=== PATIENT | female | born 1980 | race Caucasian/White ===

== ENCOUNTER 2020-05-15 19:55 | Inpatient (IN) | payer BC, MEDICAID, OTHER, SELFPAY ==
[~2020-05-15] VITALS: Ht 167.6 cm; Wt 91.4 kg
[~2020-05-15 19:55] MED LIST: ADVA1AER2 INH; ALBUPOW9 XX; ANUS2.5C2 EXT; DOCU5LIQ PO; IBUP600T26 PO; MAPA500T17 PO; MILK10SU PO; PRENTAB74 PO; TUMS500C PO
[2020-05-15] MEDS ORDERED: buspirone PO (20:34)
[2020-05-15] MEDS ORDERED: CITA20TA7 PO (20:34)
[2020-05-15 21:04] LABS: HEMATOCRIT 37.9 % (36.0-47.0); MEAN CORPUSCULAR HEMOGLOBIN 26.9 pg (27.0-33.0); MEAN CORPUSCULAR HGB CONC 31.7 g/dl (32.0-36.5); PLATELET COUNT, AUTOMATED 302 10^3/uL (150-450); RED BLOOD COUNT 4.46 10^6/uL (4.00-5.40); WHITE BLOOD COUNT 9.1 10^3/uL (4.0-10.0)
[2020-05-15 21:33] LABS: HCG, SERUM QUALITATIVE NEGATIVE (NEGATIVE)
[2020-05-15] MEDS ORDERED: LORazepam 0.5 MG TAB PO ONE (21:35)
[2020-05-15 21:41] LABS: ACETAMINOPHEN LEVEL 2.1 UG/ML (10.0-30.0); ALBUMIN 3.9 GM/DL (3.2-5.2); ALT/SGPT 21 U/L (12-78); BILIRUBIN,DIRECT < 0.1 MG/DL (0.0-0.2); BILIRUBIN,TOTAL 0.2 MG/DL (0.2-1.0); BLOOD UREA NITROGEN 14 MG/DL (7-18); CARBON DIOXIDE LEVEL 24 MEQ/L (21-32); CHLORIDE LEVEL 109 MEQ/L (98-107); CREATININE FOR GFR 0.64 MG/DL (0.55-1.30); ETHYL ALCOHOL (ETHANOL) < 0.003 % (0.000-0.010); GLOMERULAR FILTRATION RATE > 60.0 (>60); GLUCOSE, FASTING 112 MG/DL (70-100); POTASSIUM SERUM 3.9 MEQ/L (3.5-5.1); SALICYLATE LEVEL < 1.7 MG/DL (5.0-30.0); SODIUM LEVEL 141 MEQ/L (136-145); TOTAL PROTEIN 7.3 GM/DL (6.4-8.2)
[2020-05-15] MEDS ORDERED: ACETAMINOPHEN TAB 650MG DOSE (2X325MG) PO ONE (21:45)
[2020-05-15 21:54] LABS: AMPHETAMINES LEVEL URINE NEGATIVE (NEGATIVE); BARBITURATES URINE NEGATIVE (NEGATIVE); BENZODIAZEPINES URINE NEGATIVE (NEGATIVE); CANNABINOIDS URINE POSITIVE (NEGATIVE); COCAINE METABOLITE URINE NEGATIVE (NEGATIVE); METHADONE URINE NEGATIVE (NEGATIVE); OPIATES URINE NEGATIVE (NEGATIVE); PHENCYCLIDINE URINE NEGATIVE (NEGATIVE)
[2020-05-15] MEDS ORDERED: MOM 30ML SUSPENSION UDC PO PRN (23:55)
[2020-05-15] MEDS ORDERED: MAALOX 30 ML SUSP *UDC PO PRN (23:55)
[2020-05-15] MEDS ORDERED: LORazepam 2 MG TAB PO PRN (23:55)
[2020-05-16] MEDS ORDERED: VITMTA PO (00:01)
[2020-05-16] MEDS ORDERED: CELE20TA PO (00:01)
[2020-05-16] MEDS ORDERED: CYAN500T3 PO (00:01)
[2020-05-16] MEDS ORDERED: D31000TA2 PO (00:01)
[2020-05-16] MEDS ORDERED: BUSP15TA90 PO (00:01)
[2020-05-16 00:46] LABS: RSV AMPLIFICATION NEGATIVE (NEGATIVE)
[2020-05-16 03:20] VITALS: BP 166/104
[2020-05-16 03:27] VITALS: BP 166/104
[2020-05-16] MEDS: THIAMINE 100 MG TAB PO SCH ×3 (03:39→20:11)
[2020-05-16 05:44] VITALS: BP 144/83
[2020-05-16] MEDS: NICOTINE 21MG/24HR 1 EA TRANSDERMAL TD SCH (09:00)
--- NOTE | 2020-05-16 09:10 | MHHPEPDOC ---
General Date Of Admission: May 16, 2020 Legal Status: 9.39 Chief Complaint "Tearfulness" History of Present Illness HISTORY OF THE PRESENT ILLNESS: Patient is a 39 -year-old , female * PT attempts to control her crying during MHE but is unsuccessful. She was brought to ED by ambulance from the Urgent Care in [place] after presenting there with panic attack. PT states that a year ago she was accused of sexually harrassing a co worker and that it was unfounded but the stress caused her to quit. She did not elaborate as to what the job was. She spent the last year staying at home due to her anxiety and depression only going out if she absolutely had to. 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 Today after arriving at 8am she was in tears by 10am as she again felt overwhelmed. She could not calm and was sent home where she took a PRN medication but did not get relief. A friend of her later in the day offered her a CBD edibale but it caused PT to feel more anxious. brought her to the urgent care with a panic attack. While at the clinic PT requested admission for mental health and she was transported to [facility] via ambulance. PT was [employer] for 2 1/2 years and she was stationed in [place] in 2001. 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 She met her current around the same timeand he has raised her eldest as his own along with their other two daughters. When PT had her second daughter who is currently 13 she had PPD and utilized food to cope. She eventually got her eating under control and had gastric bypass at which point she replaced food with alcohol. PT admits to drinking every night with varying amounts. After the allegations against her a year ago "I have been going over the endge" PT states her drinking has escalated in amount and she has daily of thoughts of "what's the difference" meaning why not drink as she has given up on life. PT states she does not thinks she could actually kill herself but the frequent thoughts of not wanting to wake up are increasing with frequency and intensity. PT states after 20 years "Why can't I be normal" and she is tired. This 39-year-old female, has 3 daughters, ages 17, 13 and 8. She lives in [place] and is great deal of her panic and depression comes from her job, specifically when she was working at the [employer] and from July 2018 to January 2019. 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 She has not seen a psychiatrist except one virtual visit her alcohol use is significant, although she initially denied drug use is negative. She has never made a suicide attempt. She is treated by Gale Timmons and previously Colleen Jacobs with citalopram 20 mg for the last 13 years. Her legal history is negative. She has a history of panic attacks. She was in the [employer] in 1999 and got her father did not stay with her. She took care of the children. 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 She states she started to have panic attacks at least once a month. Recently she started a new job and immediately on the first day was extremely anxious. She felt overwhelmed. Her heart was racing. She froze up. It is noted that she had a history of depression in the past. She's had a gastric bypass where she lost 125 pounds, although she has gained 25 pounds back. Her bypass was in 2049. She states she drinks alcohol to cope with depression when she couldn't eat any more. She states her drinking began in 2015, 7 days a week. She and her drink 5-6 drinks a night. She denies hallucinations, delusions, obsessions, compulsions and phobias Psychiatric Review of Systems Depression (2 or more weeks): depressed mood, anhedonia, feelings of excess/guilt, feelings of worthlesness, difficulty concentrating Alla (4 or more days of): denies Psychosis: denies PTSD: denies Anxiety: situational anxiety Past Psychiatric History Previous Psychiatric Diagnosis: depression. Previous Psychiatric Admissions: None. Suicide Attempts:. None. Psychiatric Follow-up:. None. Psychiatric medications:. Citalopram 20 mg daily. Past Medical History Medical Problems History of gastric bypass Head Injury: No Seizures: No Hospitalizations: Yes Surgeries: Yes Family Medical/Psychiatric HX Psychiatric Disorders: No Addiction: No Suicide Attemps/Completions: No Addiction History alcohol Social History Childhood: To be explored. Abuse/Trauma:. No history. Current Living Situation: With . Education:, College. Employment:, Works at [employer]. Social Support:. . Legal: Negative. Marital:, Single. Mental Status Examination General Appearance: well groomed Build: average Demeanor: average Eye Contact: average Activity: average Behavior: cooperative Speech: clear Mood: depressed, anxious Affect: anxious Thought Process: logical/linear Thought Content (Delusions): none reported Thought Content (Other): guilty Thought Content (Aggressive): none reported Perception (Hallucinations): none reported Perception (Other): none reported Cognition (Impairment of): none reported Cognition(Intelligence Est.): average Oriented: Awake, Alert, Oriented times three Insight: poor Judgment: Fair Psychosis: Denies Diagnoses Major depressive illness, panic attacks, alcohol dependence A-FIB/CHADSVASC A-FIB History Current/History of A-Fib/PAF?: No Age/Risk Factor Scoring CHADSVASC: CHADSVASC Response (Comments) Value Age Risk Factor Age < 65 years old 0 Gender Risk Factor Female 1 Hx of CHF No 0 Hx of HTN No 0 Hx of Stroke/TIA/or VTE No 0 Hx of Diabetes No 0 Total 1 Treatment Treatment ordered: NONE Initial Treatment Plan 1. Patient was admitted on a [9.39] status. 2. Complete history was obtained. 3. With patients permission, family will be contacted and database will be expanded. 4. Patients medication regimen will be reviewed and changed accordingly. 5. Patient will be provided with protected environment. 6. Patient will be treated with individual, group, and milieu therapies. 7. Patient will receive supportive psych-education. 8. Discharge planning will commence immediately. 9. Outpatient follow-up treatment will be strongly recommended. 10. The initial treatment plan will focus initially on: * Depression. * Risk for suicide. ESTIMATED LENGTH OF STAY: - DAYS. TIME SPENT COUNSELING AND COORDINATING INITIAL CARE: minutes. N/A-No Antipsychotics Vital Signs Vital Signs Date Time Temp Pulse Resp B/P (MAP) Pulse Ox O2 Delivery O2 Flow Rate FiO2 05/16/20 05:44 98.5 70 18 144/83 (103) 98 Room Air Laboratory Data 24H Labs Laboratory Tests 2 05/15/20 20:44: Nucleated Red Blood Cells % (auto) 0.0, Anion Gap 8, Glomerular Filtration Rate > 60.0, Calcium Level 9.0, Total Bilirubin 0.2, Direct Bilirubin < 0.1, Aspartate Amino Transf (AST/SGOT) 21, Alanine Aminotransferase (ALT/SGPT) 21, Alkaline Phosphatase 83, Total Protein 7.3, Albumin 3.9, Albumin/Globulin Ratio 1.1L, Thyroid Stimulating Hormone (TSH) 3.190, Human Chorionic Gonadotropin, Qual NEGATIVE, Salicylates Level < 1.7L, Urine Opiates Screen NEGATIVE, Urine Methadone Screen NEGATIVE, Acetaminophen Level 2.1L, Urine Barbiturates Screen NEGATIVE, Urine Phencyclidine Screen NEGATIVE, Urine Amphetamines Screen NEGATIVE, Urine Benzodiazepines Screen NEGATIVE, Urine Cocaine Metabolite Screen NEGATIVE, Urine Cannabinoids Screen POSITIVEH, Ethyl Alcohol Level < 0.003 05/16/20 00:03: Coronavirus (COVID-19)(PCR) NEGATIVE, Influenza Type A (RT-PCR) NEGATIVE, Influenza Type B (RT-PCR) NEGATIVE, Respiratory Syncytial Virus (PCR) NEGATIVE CBC/BMP Laboratory Tests 05/15/20 20:44 Medications Scheduled Cholecalciferol (Vitamin D3) (Vitamin D3) 1,000 Unit Tablet, 1,000 UNITS PO DAILY, (Reported) Citalopram Hydrobromide (Celexa) 20 Mg Tablet, 20 MG PO QHS, (Reported) Cyanocobalamin (Vitamin B-12) (Vitamin B-12) 500 Mcg Tablet, 500 MCG PO DAILY, (Reported) Multivitamins (Thera M Plus Tablet) 1 Each Tablet, 1 TAB PO DAILY, (Reported) Scheduled PRN Buspirone HCl (Buspirone HCl) 15 Mg Tablet, 15 MG PO BID PRN for ANXIETY, (Reported) Allergies Coded Allergies: No Known Allergies (Verified , 10/25/06) STEPHAN PHILLIPS MD May 16, 2020 09:10
[2020-05-16] MEDS: MULTIVITAMINS/MINERALS THERAP 1 TAB PO SCH (09:52)
[2020-05-16] MEDS: FOLIC ACID 1 MG TAB PO SCH (09:52)
[2020-05-16 16:55] VITALS: BP 154/98
--- NOTE | 2020-05-16 19:47 | HPEPDOC ---
[facility] Medical History & Physical Date of Admission May 16, 2020 Date of Service: May 16, 2020 History and Physical CHIEF COMPLAINT: Panic attack, Major depressive episode HISTORY OF PRESENT ILLNESS: Mrs. Perry is a 39 year old female with depression, anxiety, alcohol dependence disorder, and gastric bypass who is in the inpatient mental health unit for panic attack and major depressive episode. She was seen this afternoon. Denies any fever, chest pain, dyspnea, abdominal pain, or dysuria. She is feeling a little better today. PAST MEDICAL HISTORY: 1. Depression/anxiety. 2. Alcohol dependence disorder. PAST SURGICAL HISTORY: 1. Gastric bypass. 2. Hernia repair. 3. Gallbladder surgery. SOCIAL HISTORY: Tobacco use: Current smoker ETOH: Drinks alcohol daily. Drinks rum and Coke. Last drink 2 days prior Illicit drug use: Denies. She did use friend's marijuana which is positive in her urine tox screen FAMILY HISTORY: Father: Diabetes Mother: Diabetes and heart disease ALLERGIES: Please see below. REVIEW OF SYSTEMS: CONSTITUTIONAL: Denies any fever. ENT: Denies sore throat. RESPIRATORY: Denies shortness of breath. Denies cough. CARDIOVASCULAR: Denies chest pain. Denies palpitations. GASTROINTESTINAL: Denies abdominal pain. Denies diarrhea. Denies constipation GENITOURINARY: Denies dysuria. CUTANEOUS: Denies rashes. MUSCULOSKELETAL: Denies muscle weakness. NEUROLOGICAL: Denies neuropathy. Denies paresthesias. PSYCHOLOGICAL: Reports improvement in depression and anxiety. HOME MEDICATIONS: Please see below. PHYSICAL EXAMINATION: VITAL SIGNS: Temperature 98.1, pulse 98, respiratory rate 18, blood pressure 154/98, pulse oximetry 96 % on room air. GENERAL: Comfortable, in no apparent distress. HEENT: Head normocephalic/atraumatic, EOMI, sclera clear. NECK: Supple, no JVD. RESPIRATORY: Lungs clear to auscultation bilaterally, no rales, wheeze or rhonchi. CARDIOVASCULAR: Regular rate and rhythm. ABDOMEN: Soft, nontender, no guarding or rebound tenderness. Normal bowel sounds . MUSCLE SKELETAL: Muscle strength 5/5 in all extremities. NEUROLOGICAL: CN 312 grossly intact, no focal deficits noted. PSYCHOLOGICAL: Normal mood and affect LABORATORY DATA: See below. ASSESSMENT AND PLAN: 1. Panic attack Being managed in the inpatient mental health unit 2. Major depressive disorder Being managed in the inpatient mental health unit 3. Alcohol use disorder Last alcoholic drink about 2 days ago Agree with thiamine, folic acid, multivitamin, and lorazepam as needed Thank you for consulting us. We will sign off at this time. If there is any further questions or concerns, please do not hesitate to reconsult us. Vital Signs Vital Signs Date Time Temp Pulse Resp B/P (MAP) Pulse Ox O2 Delivery O2 Flow Rate FiO2 05/16/20 16:55 98.1 98 18 154/98 (116) 96 Room Air Laboratory Data Labs 24H Laboratory Tests 2 05/15/20 20:44: Nucleated Red Blood Cells % (auto) 0.0, Anion Gap 8, Glomerular Filtration Rate > 60.0, Calcium Level 9.0, Total Bilirubin 0.2, Direct Bilirubin < 0.1, Aspartate Amino Transf (AST/SGOT) 21, Alanine Aminotransferase (ALT/SGPT) 21, Alkaline Phosphatase 83, Total Protein 7.3, Albumin 3.9, Albumin/Globulin Ratio 1.1L, Thyroid Stimulating Hormone (TSH) 3.190, Human Chorionic Gonadotropin, Qual NEGATIVE, Salicylates Level < 1.7L, Urine Opiates Screen NEGATIVE, Urine Methadone Screen NEGATIVE, Acetaminophen Level 2.1L, Urine Barbiturates Screen NEGATIVE, Urine Phencyclidine Screen NEGATIVE, Urine Amphetamines Screen NEGATIVE, Urine Benzodiazepines Screen NEGATIVE, Urine Cocaine Metabolite Screen NEGATIVE, Urine Cannabinoids Screen POSITIVEH, Ethyl Alcohol Level < 0.003 05/16/20 00:03: Coronavirus (COVID-19)(PCR) NEGATIVE, Influenza Type A (RT-PCR) NEGATIVE, Influenza Type B (RT-PCR) NEGATIVE, Respiratory Syncytial Virus (PCR) NEGATIVE CBC/BMP Laboratory Tests 05/15/20 20:44 Home Medications Scheduled Cholecalciferol (Vitamin D3) (Vitamin D3) 1,000 Unit Tablet, 1,000 UNITS PO DAILY Citalopram Hydrobromide (Celexa) 20 Mg Tablet, 20 MG PO QHS Cyanocobalamin (Vitamin B-12) (Vitamin B-12) 500 Mcg Tablet, 500 MCG PO DAILY Multivitamins (Thera M Plus Tablet) 1 Each Tablet, 1 TAB PO DAILY Scheduled PRN Buspirone HCl (Buspirone HCl) 15 Mg Tablet, 15 MG PO BID PRN for ANXIETY Allergies Coded Allergies: No Known Allergies (Verified , 10/25/06) A-FIB/CHADSVASC A-FIB History Current/History of A-Fib/PAF?: No ESTEFANÍA LINDSAY DO May 16, 2020 19:47
[2020-05-16] MEDS: traZODone 50 MG TAB PO PRN (20:11)
[2020-05-16] MEDS: ACETAMINOPHEN TAB 650MG DOSE (2X325MG) PO PRN (20:11)
[2020-05-16] MEDS: CitaloPRAM (CeleXA) 20 MG TAB PO SCH (20:12)
[2020-05-16] MEDS ORDERED: CitaloPRAM (CeleXA) 20 MG TAB PO SCH (21:00)
[2020-05-17 06:50] VITALS: BP 155/86
[2020-05-17] MEDS: NICOTINE 21MG/24HR 1 EA TRANSDERMAL TD SCH (09:00)
[2020-05-17] MEDS: FOLIC ACID 1 MG TAB PO SCH (09:19)
[2020-05-17] MEDS: THIAMINE 100 MG TAB PO SCH ×2 (09:19→20:33)
[2020-05-17] MEDS: MULTIVITAMINS/MINERALS THERAP 1 TAB PO SCH (09:19)
[2020-05-17] MEDS: ACETAMINOPHEN TAB 650MG DOSE (2X325MG) PO PRN (18:03)
[2020-05-17 18:22] VITALS: BP 150/82
[2020-05-17] MEDS: traZODone 50 MG TAB PO PRN (20:32)
[2020-05-17] MEDS: CitaloPRAM (CeleXA) 20 MG TAB PO SCH (20:33)
[2020-05-18 06:21] VITALS: BP 150/94
[2020-05-18 06:22] VITALS: BP 150/94
--- NOTE | 2020-05-18 06:30 | MHIPNPDOC ---
[facility] Progress Note Progress Note DATE OF SERVICE: 05/17/2020 HISTORY: Significant alcohol intake and depression in this 39yo female VITAL SIGNS: See below. NEW TEST RESULTS: none CURRENT MEDICATIONS: See below. This 39-year-old female, has 3 daughters, ages 17, 13 and 8. She lives in [place] and is great deal of her panic and depression comes from her job, specifically when she was working at the [employer] and from July 2018 to January 2019. 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 She has not seen a psychiatrist except one virtual visit her alcohol use is significant, although she initially denied drug use is negative. She has never made a suicide attempt. She is treated by Gale Timmons and previously Colleen Jacobs with citalopram 20 mg for the last 13 years. Her legal history is negative. She has a history of panic attacks. She was in the [employer] in 1999 and got her father did not stay with her. She took care of the children. 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 She states she started to have panic attacks at least once a month. Recently she started a new job and immediately on the first day was extremely anxious. She felt overwhelmed. Her heart was racing. She froze up. It is noted that she had a history of depression in the past. She's had a gastric bypass where she lost 125 pounds, although she has gained 25 pounds back. Her bypass was in 2049. She states she drinks alcohol to cope with depression when she couldn't eat any more. She states her drinking began in 2015, 7 days a week. She and her drink 5-6 drinks a night. She denies hallucinations, d elusions, obsessions, compulsions and phobi Speech: Is no gross disturbance. Language skills are. No gross disturbance. Thought processes including:, Sadness and overwhelmed. Thought content: Feeling brighter today. Abstract reasoning, and computation: Able to abstract. Description of associations:. No loose associations. Description of abnormal or psychotic thoughts:. No psychotic thought. Judgment: Improving. Insight:. Good. Orientation: 3. Recent and remote memory: Intact. Attention span and concentration: Intact. Language:. No gross disturbance. Fund of knowledge: Reasonable. Mood: Improved. Affect:. Brighter. DIAGNOSES: 1. Major depressive illness. 2., Alcohol dependence. 3.. . ASSESSMENT: As above MANAGEMENT PLAN:. Continued treatment and plan follow-up for alcohol use as well. TIME SPENT:, 25 minutes. Vital Signs Vital Signs Date Time Temp Pulse Resp B/P (MAP) Pulse Ox O2 Delivery O2 Flow Rate FiO2 05/18/20 06:22 97.6 87 18 150/94 (112) 100 Room Air Current Medications Current Medications Medications (Trade) Dose Ordered Sig/Ramakrishna Route PRN Reason Start Time Stop Time Status Last Admin Dose Admin Acetaminophen (Tylenol Tab) 650 mg Q6HP PRN PO HEADACHE or DISCOMFORT 05/15/20 23:55 05/17/20 18:03 Al Hydrox/Mg Hydrox/Simethicone (Mylanta) 30 ml Q4HP PRN PO HEARTBURN/INDIGESTION 05/15/20 23:55 Citalopram Hydrobromide (CeleXA) 20 mg QHS PO 05/16/20 21:00 05/16/20 09:39 DC Citalopram Hydrobromide (CeleXA) 40 mg QHS PO 05/16/20 21:00 05/17/20 20:33 Folic Acid (Folic Acid) 1 mg DAILY PO 05/16/20 09:00 05/17/20 09:19 Home Med (Med Rec Complete!) ASDIRECTED XX 05/16/20 00:05 05/16/20 00:03 DC Lorazepam (Ativan) 2 mg ASDIRECTED PRN PO SEE PROTOCOL 05/15/20 23:55 05/16/20 03:39 Magnesium Hydroxide (Milk Of Magnesia) 30 ml DAILYPRN PRN PO CONSTIPATION 05/15/20 23:55 Multivitamins (Theragram-M) 1 tab DAILY PO 05/16/20 09:00 05/17/20 09:19 Nicotine (Nicoderm Cq 21mg) 1 patch DAILY TD 05/16/20 09:00 Thiamine HCl (Thiamine HCl) 100 mg BID PO 05/15/20 09:00 05/17/20 21:01 DC 05/17/20 20:33 Trazodone HCl (Desyrel) 50 mg QHSP PRN PO INSOMNIA 05/15/20 23:55 05/17/20 20:32 Allergies Coded Allergies: No Known Allergies (Verified , 10/25/06) STEPHAN PHILLIPS MD May 18, 2020 06:30
--- NOTE | 2020-05-18 06:35 | MHIPNPDOC ---
[facility] Progress Note Progress Note DATE OF SERVICE: 05/18/20 HISTORY: This 39-year-old female, has 3 daughters, ages 17, 13 and 8. She lives in [place] and is great deal of her panic and depression comes from her job, specifically when she was working at the [employer] and from July 2018 to January 2019. 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 She has not seen a psychiatrist except one virtual visit her alcohol use is significant, although she initially denied drug use is negative. She has never made a suicide attempt. She is treated by Gale Timmons and previously Colleen Jacobs with citalopram 20 mg for the last 13 years. Her legal history is negative. She has a history of panic attacks. She was in the [employer] in 1999 and got her father did not stay with her. She took care of the children. 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 She states she started to have panic attacks at least once a month. Recently she started a new job and immediately on the first day was extremely anxious. She felt overwhelmed. Her heart was racing. She froze up. It is noted that she had a history of depression in the past. She's had a gastric bypass where she lost 125 pounds, although she has gained 25 pounds back. Her bypass was in 2049. She states she drinks alcohol to cope with depression when she couldn't eat any more. She states her drinking began in 2015, 7 days a week. She and her drink 5-6 drinks a night. She denies hallucinations, delusions, obsessions, compulsions and phobias. Patient continues to improve in mood and affect. Outpt plans will be discussed with team. Speech: Is no gross disturbance. Language skills are. No gross disturbance. Thought processes including:, Sadness and overwhelmed on admission Thought content: Feeling brighter today. Abstract reasoning, and computation: Able to abstract. Description of associations:. No loose associations. Description of abnormal or psychotic thoughts:. No psychotic thought. Judgment: Improving. Insight:. Good. Orientation: 3. Recent and remote memory: Intact. Attention span and concentration: Intact. Language:. No gross disturbance. Fund of knowledge: Reasonable. Mood: Improved. Affect:. Brighter. DIAGNOSES: 1. Major depressive illness. 2., Alcohol dependence. 3.. . ASSESSMENT: As above MANAGEMENT PLAN:. Continued treatment and plan follow-up for alcohol use as well. TIME SPENT:, 25 minutes. Vital Signs Vital Signs Date Time Temp Pulse Resp B/P (MAP) Pulse Ox O2 Delivery O2 Flow Rate FiO2 05/18/20 06:22 97.6 87 18 150/94 (112) 100 Room Air Current Medications Current Medications Medications (Trade) Dose Ordered Sig/Ramakrishna Route PRN Reason Start Time Stop Time Status Last Admin Dose Admin Acetaminophen (Tylenol Tab) 650 mg Q6HP PRN PO HEADACHE or DISCOMFORT 05/15/20 23:55 05/17/20 18:03 Al Hydrox/Mg Hydrox/Simethicone (Mylanta) 30 ml Q4HP PRN PO HEARTBURN/INDIGESTION 05/15/20 23:55 Citalopram Hydrobromide (CeleXA) 20 mg QHS PO 05/16/20 21:00 05/16/20 09:39 DC Citalopram Hydrobromide (CeleXA) 40 mg QHS PO 05/16/20 21:00 05/17/20 20:33 Folic Acid (Folic Acid) 1 mg DAILY PO 05/16/20 09:00 05/17/20 09:19 Home Med (Med Rec Complete!) ASDIRECTED XX 05/16/20 00:05 05/16/20 00:03 DC Lorazepam (Ativan) 2 mg ASDIRECTED PRN PO SEE PROTOCOL 05/15/20 23:55 05/16/20 03:39 Magnesium Hydroxide (Milk Of Magnesia) 30 ml DAILYPRN PRN PO CONSTIPATION 05/15/20 23:55 Multivitamins (Theragram-M) 1 tab DAILY PO 05/16/20 09:00 05/17/20 09:19 Nicotine (Nicoderm Cq 21mg) 1 patch DAILY TD 05/16/20 09:00 Thiamine HCl (Thiamine HCl) 100 mg BID PO 05/15/20 09:00 05/17/20 21:01 DC 05/17/20 20:33 Trazodone HCl (Desyrel) 50 mg QHSP PRN PO INSOMNIA 05/15/20 23:55 05/17/20 20:32 Allergies Coded Allergies: No Known Allergies (Verified , 10/25/06) STEPHAN PHILLIPS MD May 18, 2020 06:35
[2020-05-18] MEDS: NICOTINE 21MG/24HR 1 EA TRANSDERMAL TD SCH (09:00)
[2020-05-18] MEDS: FOLIC ACID 1 MG TAB PO SCH (09:03)
[2020-05-18] MEDS: MULTIVITAMINS/MINERALS THERAP 1 TAB PO SCH (09:04)
[2020-05-18 16:41] VITALS: BP 164/92
[2020-05-18] MEDS: traZODone 50 MG TAB PO PRN (20:20)
[2020-05-18] MEDS: CitaloPRAM (CeleXA) 20 MG TAB PO SCH (20:20)
[2020-05-19 06:48] VITALS: BP 126/72
[2020-05-19] MEDS: NICOTINE 21MG/24HR 1 EA TRANSDERMAL TD SCH (08:42)
[2020-05-19 17:42] VITALS: BP 128/64
[2020-05-19] MEDS: CitaloPRAM (CeleXA) 20 MG TAB PO SCH (20:25)
[2020-05-19] MEDS: traZODone 50 MG TAB PO PRN (20:25)
[2020-05-20 06:45] VITALS: BP 130/85
[2020-05-20] MEDS: NICOTINE 21MG/24HR 1 EA TRANSDERMAL TD SCH (09:00)
--- NOTE | 2020-05-20 11:03 | MHIPN ---
[facility] PROGRESS NOTE DATE: 05/19/2020 The patient today states, "I'm doing good." She says she is not depressed and that she has not felt this good in a long time. She admits that the fact that she is not drinking is helping her mood. She says she had a little trouble falling asleep but then fell asleep and slept good. MENTAL STATUS EXAMINATION: She is alert and oriented times three. She is pleasant and cooperative, verbally spontaneous. Eye contact is good. There is no formal thought disorder noted. She says her mood is better. Affect appropriate to mood. She is not psychotic, suicidal, or homicidal. Concentration and memory is good. Insight and judgment good. DIAGNOSES: Major depressive disorder. Alcohol use disorder. TREATMENT PLAN: We will continue to monitor the patient for continued elevation of her mood and stabilization and resolution of suicidal thoughts.
[2020-05-20 17:24] VITALS: BP 143/90
[2020-05-20] MEDS: traZODone 50 MG TAB PO PRN (20:35)
[2020-05-20] MEDS: CitaloPRAM (CeleXA) 20 MG TAB PO SCH (20:35)
[2020-05-21 06:40] VITALS: BP 140/90
[2020-05-21] MEDS: NICOTINE 21MG/24HR 1 EA TRANSDERMAL TD SCH (07:58)
[2020-05-21 16:31] VITALS: BP 142/100
[2020-05-21] MEDS: ACETAMINOPHEN TAB 650MG DOSE (2X325MG) PO PRN (18:30)
[2020-05-21] MEDS: CitaloPRAM (CeleXA) 20 MG TAB PO SCH (19:54)
[2020-05-21] MEDS: traZODone 50 MG TAB PO PRN (19:55)
[2020-05-22 06:21] VITALS: BP 138/84
[2020-05-22] MEDS: NICOTINE 21MG/24HR 1 EA TRANSDERMAL TD SCH (08:21)
[2020-05-22] MEDS ORDERED: TRAZ-252 PO (11:27)
[2020-05-22] MEDS ORDERED: CELE20TA PO (11:27)
--- NOTE | 2020-05-22 11:57 | MHDS ---
[facility] DISCHARGE SUMMARY DATE OF ADMISSION: 05/15/2020 DATE OF DISCHARGE: 05/22/2020 DIAGNOSES: 1. Major depressive disorder. 2. Alcohol use disorder. 3. Panic disorder. IDENTIFYING DATA: She is a 39-year-old female, , living with her and children, was admitted because of severe panic attack and depression. After she resumed a new job, she was overwhelmed. For details of history of present illness, past psychiatric history, personal history, medical history, substance abuse history, please refer to the initial evaluation. COURSE IN THE HOSPITAL: Patient initially was depressed and exhibited labile mood. She was placed on citalopram and trazodone. She made gradual recovery. Her mood improved. She was relating well with staff and her peers. There were no behavioral issues on the unit. She was attending groups. No side effects from the medication. She currently denies any suicidal or homicidal ideas. She was continued with group, individual and milieu therapy. MENTAL STATUS EXAMINATION: Casually dressed, mildly obese, cooperative, made good eye contact. Speech rate, rhythm, volume are good, spontaneous. Mood is euthymic. Affect is full range. Thought process: Linear, goal-directed. Thought content: Denies any delusions, denies any suicidal or homicidal ideas. Denies any hallucinations. She is oriented to time, place, person and memory is intact. Insight and judgment is fair. VITAL SIGNS: Temperature 97.3, pulse 84, respirations 16, blood pressure 138/84, pulse oximetry 97. LABORATORY DATA: CBC within normal limits. CMP within normal limits. Toxicology: She was positive for cannabis. Her ethyl alcohol level was 0.003. MEDICATIONS AT DISCHARGE: - citalopram 40 mg once daily - trazodone 50 mg at night as needed. PLAN: Continue current medications. She will be going to the outpatient clinic in [place]. She will have outpatient rehabilitation treatment in [place]. The patient is eager to go to AA meetings. She will be discharged home.
--- NOTE | 2020-05-22 16:57 | MHIPN ---
[facility] PROGRESS NOTE DATE: 05/20/2020 The patient today states that she is doing good. She says she is not noticing any withdrawal problems from the alcohol and she is not suicidal. MENTAL STATUS EXAMINATION: She is alert and oriented times three. Eye contact is fair. Psychomotor activity normal. There is no formal thought disorder noted. Mood is good. Affect is constricted but appropriate to mood. She is not psychotic, suicidal, or homicidal. Concentration fair. Memory intact. Insight and judgment fair. DIAGNOSES: Major depressive disorder. Alcohol use disorder. TREATMENT PLAN: At this point, we will continue to monitor the patient for continued elevation and stabilization of her mood and resolution of suicidal ideations and monitor her withdrawal process from alcohol.
== END 2020-05-22 12:15 | disposition home or self-care (01) | DRG 754 ==
LOC: M ED 19:55 → M ED INP 19:56 → M PSY 05-16 01:47
PROVIDERS: ADMIT Psychiatry & Neurology Child & Adolescent Psychiatry; ATTEND Psychiatry & Neurology Psychiatry
DX: F32.9 Major depressive disorder, single episode, unspecified (principal); F41.0 Panic disorder [episodic paroxysmal anxiety]; F10.20 Alcohol dependence, uncomplicated; Z20.822 Contact with and (suspected) exposure to COVID-19; Z79.899 Other long term (current) drug therapy; Z98.84 Bariatric surgery status; F17.200 Nicotine dependence, unspecified, uncomplicated; E66.9 Obesity, unspecified; Z68.32 Body mass index [BMI] 32.0-32.9, adult